=== PATIENT | female | born 1995 | race Caucasian/White ===

== ENCOUNTER 2017-06-10 20:50 | Inpatient (IN) ==
[2017-06-10 21:18] LABS: URINE SOURCE VOIDED
[2017-06-10 21:24] LABS: UR AMPHETAMINES QUAL NONE DETECTED (NONE DETECT); UR BARBITUATES QUAL NONE DETECTED (NONE DETECT); UR BENZODIAZEPIN QUAL NONE DETECTED (NONE DETECT); UR CANNABINOIDS QUAL NONE DETECTED (NONE DETECT); UR COCAINE QUAL NONE DETECTED (NONE DETECT); UR MDMA QUAL NONE DETECTED (NONE DETECT); UR METHADONE QUAL NONE DETECTED (NONE DETECT); UR METHAMPHETAMINE QUAL NONE DETECTED (NONE DETECT); UR OPIATES QUAL NONE DETECTED (NONE DETECT); UR OXYCODONE QUAL NONE DETECTED (NONE DETECT); UR PCP QUAL NONE DETECTED (NONE DETECT); UR TCA QUAL NONE DETECTED (NONE DETECT)
[2017-06-10 21:25] LABS: BILIRUBIN URINE NEGATIVE (NEGATIVE); BLOOD URINE NEGATIVE (NEGATIVE); CLARITY CLEAR (CLEAR); COLOR YELLOW; GLUCOSE URINE NEGATIVE (NEGATIVE); LEUKOCYTES URINE TRACE (NEGATIVE); NITRITE URINE NEGATIVE (NEGATIVE); PH URINE 6.5; PROTEIN URINE TRACE mg/dL (NEGATIVE); SP GRAVITY URINE 1.015; UROBILINOGEN URINE 1+(1 mg/dL)
[2017-06-10] MEDS ORDERED: BRETHINE SUBQ PRN (21:53)
[2017-06-10] MEDS ORDERED: AMBIEN PO PRN (21:53)
[2017-06-10] MEDS ORDERED: TYLENOL PO PRN (21:53)
[2017-06-10] MEDS ORDERED: STADOL IV PRN ×2 (21:53)
[2017-06-10] MEDS ORDERED: PEPCID IV PRN (21:53)
[2017-06-10] MEDS ORDERED: PEPCID PO PRN (21:53)
[2017-06-10] MEDS ORDERED: ZOFRAN IV PRN (21:53)
[2017-06-10] MEDS: LR 1,000 ML IV SCH (22:20)
[2017-06-10] MEDS ORDERED: CYTOTEC PO ONE (23:00)
[2017-06-10 23:37] LABS: MANUAL DIFF NEEDED? NO
[2017-06-10 23:44] LABS: BASO% 0.1 % (0.0-0.8); EOS# 0.17 X1000 (0.0-0.7); EOS% 2.2 % (0.0-10.0); HEMATOCRIT 27.6 % (37.0-47.0); HEMOGLOBIN 9.6 g/dL (12.0-16.0); IMM GRAN# 0.03 X1000 (0.0-0.04); IMM GRAN% 0.4 % (0.0-0.5); LYMPH# 1.12 X1000 (1.2-3.4); LYMPH% 14.2 % (20.5-51.1); MCH 31.1 PG (27-31); MCHC 34.8 g/dL (33-37); MCV 89.3 FL (81-99); MONO# 0.71 X1000 (0.11-0.59); MPV 10.8 FL (7.4-10.4); NEUT% 74.1 % (42.2-75.2); PLT 79 X1000 (130-400); RBC 3.09 XMIL (4.2-5.4)
[2017-06-11] MEDS ORDERED: CYTOTEC PO SCH (03:00)
[2017-06-11] MEDS: STADOL IV PRN ×2 (05:42→09:23)
[2017-06-11 06:01] LABS: MANUAL DIFF NEEDED? NO
[2017-06-11 06:44] LABS: BASO% 0.2 % (0.0-0.8); EOS# 0.32 X1000 (0.0-0.7); EOS% 2.3 % (0.0-10.0); HEMATOCRIT 34.2 % (37.0-47.0); IMM GRAN# 0.08 X1000 (0.0-0.04); IMM GRAN% 0.6 % (0.0-0.5); LYMPH# 2.32 X1000 (1.2-3.4); LYMPH% 16.5 % (20.5-51.1); MCH 31.5 PG (27-31); MCHC 35.1 g/dL (33-37); MCV 89.8 FL (81-99); MONO# 1.22 X1000 (0.11-0.59); MONO% 8.7 % (1.7-9.3); MPV 9.7 FL (7.4-10.4); NEUT% 71.7 % (42.2-75.2); PLT 249 X1000 (130-400); RBC 3.81 XMIL (4.2-5.4)
[2017-06-11] MEDS ORDERED: PITOCIN 30 UNITS/LR 30 UNITS/500 ML IV.SOLN IV SCH (07:00)
[2017-06-11] MEDS ORDERED: XYLOCAINE-MPF 1% INJ ONE (07:30)
[2017-06-11] MEDS ORDERED: MINERAL OIL PO ONE (07:30)
[2017-06-11] MEDS ORDERED: FENTANYL-BUPIV-NS 2 MCG-0.1% 200 ML EPIDURAL PRN (07:57)
[2017-06-11] MEDS ORDERED: NAROPIN 0.2% ONE (12:28)
[2017-06-11] MEDS ORDERED: NAROPIN 0.5% ONE (13:59)
[2017-06-11] MEDS: LR 1,000 ML IV SCH (15:39)
[2017-06-11] MEDS ORDERED: BENADRYL IV PRN (16:52)
[2017-06-11] MEDS ORDERED: PERI MEDS (DERMOPLAST/NUPERCAINAL/TUCKS) MISC PRN (16:52)
[2017-06-11] MEDS ORDERED: PITOCIN 20 UNITS/LR 20 UNITS/1,000 ML IV.SOLN IV SCH (16:52)
[2017-06-11] MEDS ORDERED: M-M-R II VACCINE SUBQ ONE (16:52)
[2017-06-11] MEDS ORDERED: MINERAL OIL PO PRN (16:52)
[2017-06-11] MEDS ORDERED: XYLOCAINE-MPF 1% INJ PRN (16:52)
[2017-06-11] MEDS ORDERED: PERCOCET-5 PO PRN (16:52)
[2017-06-11] MEDS ORDERED: NORCO-5 PO PRN (16:52)
[2017-06-11] MEDS ORDERED: PITOCIN IM PRN (16:52)
[2017-06-11] MEDS ORDERED: CYTOTEC PO PRN (16:52)
[2017-06-11] MEDS ORDERED: BOOSTRIX VACCINE IM ONE (16:52)
[2017-06-11] MEDS ORDERED: BENADRYL PO PRN (16:52)
[2017-06-11] MEDS ORDERED: AMBIEN PO PRN (16:52)
[2017-06-11] MEDS ORDERED: PITOCIN 30 UNITS/LR 30 UNITS/500 ML IV.SOLN IV ONE (16:52)
[2017-06-11] MEDS ORDERED: HYDROXYZINE PO PRN (16:52)
[2017-06-11] MEDS ORDERED: HYDROXYZINE IM PRN (16:52)
--- NOTE | 2017-06-11 17:25 | OPERATIVE NOTE ---
PROCEDURE DATE: 06/11/2017 DELIVERING PHYSICIAN: Deniz Osborne MD. TYPE OF DELIVERY: Spontaneous controlled vaginal delivery. ANESTHESIA: Epidural. FINDINGS: At 1620, a 6 pound 4 ounce female infant was delivered in occiput anterior presentation. Apgars were 8 at 1 minute and 10 at 5 minutes. SUMMARY: Ricardo Camp is a 21-year-old, primigravida. Her blood type is O positive. Rubella equivocal. Hepatitis B surface antigen, HIV, and group B strep are negative. Her has been without complications. She presented to Labor and Delivery yesterday, reporting spontaneous rupture of membranes that occurred last evening. She came to the hospital and received 2 doses of Cytotec and this morning we began IV Pitocin. An epidural placed for labor pain management. She progressed to labor without signs of distress or dystocia. She became complete and began pushing. She soon crowned. At that point, she was placed in dorsal lithotomy position. The perineum was prepped and draped in usual fashion. A midline episiotomy was performed. Spontaneous controlled vaginal delivery occurred. Shoulders and body delivered without complications. Oropharynx was bulb suctioned. The cord was clamped and cut. The was handed to the nurses for further care and evaluation. Cord blood was obtained. Placenta was spontaneously delivered and was intact. There was a midline episiotomy that was repaired in layers using 2-0 Vicryl suture. Blood loss approximately 200 mL. Patient remained in the LDR recovering without difficulty. cc: MD Zohreh Silva MD
[2017-06-11] MEDS: MOTRIN PO PRN (18:39)
[2017-06-11] MEDS: NORCO-10 PO PRN (23:07)
[2017-06-11] MEDS: PERICOLACE PO SCH (23:08)
[2017-06-12] MEDS: MOTRIN PO PRN ×3 (04:02→23:51)
[2017-06-12] MEDS: NORCO-10 PO PRN (04:02)
[2017-06-12 05:48] LABS: HEMATOCRIT 29.9 % (37.0-47.0); HEMOGLOBIN 10.2 g/dL (12.0-16.0); MCH 30.6 PG (27-31); MCHC 34.1 g/dL (33-37); MCV 89.8 FL (81-99); MPV 9.8 FL (7.4-10.4); RBC 3.33 XMIL (4.2-5.4)
[2017-06-12] MEDS: PRECARE PO SCH (08:16)
[2017-06-12] MEDS: PERCOCET-10 PO PRN ×3 (08:16→20:34)
[2017-06-12] MEDS: PERICOLACE PO SCH (20:34)
[2017-06-13] MEDS: PERCOCET-10 PO PRN (00:17)
[2017-06-13] MEDS ORDERED: PNEUMOVAX 23 IM ONE (07:30)
[2017-06-13 07:49] VITALS: BP 113/66
[2017-06-13] MEDS: MOTRIN PO PRN (08:01)
[2017-06-13] MEDS: NORCO-10 PO PRN (08:02)
[2017-06-13] MEDS: PRECARE PO SCH (08:11)
== END 2017-06-13 11:15 | disposition home or self-care (01) ==
LOC: P.OPLD 20:50 → P.LD 20:53
PROVIDERS: ADMIT Obstetrics & Gynecology; ATTEND Obstetrics & Gynecology